=== PATIENT | female | born 1985 | race Caucasian/White ===

== ENCOUNTER 2019-10-05 21:08 | Emergency (ER) | payer OTHER ==
[2019-10-05] MEDS ORDERED: FENTANYL CITR 100 MCG/2 ML ONE ×2 (21:45→23:19)
[2019-10-05] MEDS ORDERED: NA CHLORIDE 0.9% 1,000 ML ONE (21:45)
[2019-10-05] MEDS ORDERED: ONDANSETRON 4 MG/2 ML VIAL ONE (22:08)
--- NOTE | 2019-10-05 23:59 | ER ---
Nurse's Notes [facility] Name: Emiliana Vasquez Age: 34 yrs Sex: Female : 1985 Arrival Date: 10/05/2019 Time: 21:12 Bed 30 Private MD: Diagnosis: Low back pain Presentation: 10/05 21:15 Presenting complaint: Patient states: "I have severe lower back pain, 2 hours ago I was aj1 getting up and I felt a distinct loud pop in my back and it just exploded with this burning pain down both of my legs, just my whole lower back and tailbone feel like they are on fire. I do have mobility issues in my left leg from cervical instability from a Chiari malformation. Transition of care: patient was not received from another setting of care. Onset of symptoms was October 05, 2019. Risk Assessment: Do you want to hurt yourself or someone else? Patient reports no desire to harm self or others. Initial Sepsis Screen: Does the patient meet any 2 criteria? HR > 90 bpm. No. Patient's initial sepsis screen is negative. Does the patient have a suspected source of infection? No. Patient's initial sepsis screen is negative. Care prior to arrival: None. 21:15 Method Of Arrival: Wheelchair aj1 21:15 Acuity: SIRENA 3 aj1 Triage Assessment: 21:20 General: Appears in no apparent distress. uncomfortable, Behavior is calm, cooperative, aj1 appropriate for age. Pain: Complains of pain in back Pain currently is 8 out of 10 on a pain scale. Neuro: Level of Consciousness is awake, alert, obeys commands. Cardiovascular: Patient's skin is warm and dry. Respiratory: Airway is patent Respiratory effort is even, unlabored, Respiratory pattern is regular, symmetrical. 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 - Social history:: Smoking status: Patient/guardian denies using tobacco. - Ebola Screening: : Patient denies travel to an Ebola-affected area in the 21 days before illness onset. Assessment: 21:51 General: Appears in no apparent distress. Behavior is calm, cooperative. Pain: rv Complains of pain in back. Neuro: Level of Consciousness is awake, alert, obeys commands, Oriented to person, place, time, situation. Musculoskeletal: Reports pain in back. 22:49 Reassessment: Patient appears in no apparent distress at this time. Patient and/or rv family updated on plan of care and expected duration. Pain level reassessed. Patient is alert, oriented x 3, equal unlabored respirations, skin warm/dry/pink. awaiting cT scan result. 22:58 Reassessment: Assumed care of pt. Pt sitting upright with neck brace in place, reports sr5 returning pain symptoms. PRovider notified. Equal unlabored resp, skin warm/dry/nc. Awaiting CT result. 23:56 Reassessment: Dr. Gao at bedside. sr5 Vital Signs: 21:20 BP 144 / 73; Pulse 127; Resp 20; Temp 99.5; Pulse Ox 100% on R/A; Weight 113.4 kg (R); aj1 Height 5 ft. 6 in. (167.64 cm); Pain 8/10; 22:00 BP 119 / 76; Pulse 99; Resp 17; Pulse Ox 98% ; rv 22:19 BP 125 / 78; Pulse 113; Resp 17; Pulse Ox 98% on R/A; rv 22:49 BP 125 / 78; Pulse 94; Resp 18; Pulse Ox 98% on R/A; rv 23:22 BP 119 / 67; Pulse 80; Resp 20; Pulse Ox 96% on R/A; sr5 23:22 Pain 8/10; sr5 23:47 BP 123 / 77; Pulse 77; Resp 16; Pulse Ox 99% on R/A; Pain 6/10; sr5 21:20 Body Mass Index 40.35 (113.40 kg, 167.64 cm) aj1 ED Course: 21:12 Patient arrived in ED. cl3 21:13 Cachorro Gao MD is Attending Physician. kdr 21:17 Triage completed. aj1 21:20 Arm band placed on Patient placed in an exam room. aj1 21:30 Geraldo Emerson RN is Primary Nurse. rv 21:45 Inserted saline lock: 22 gauge in left hand, using aseptic technique. rv 22:16 CT Lumbar Spine Wo Con In Process Unspecified. EDMS Administered Medications: 21:50 Drug: fentaNYL (PF) 50 mcg {Note: rass 0.} Route: IVP; Site: left hand; rv 22:08 Follow up: Response: No adverse reaction; Pain is decreased; RASS: Alert and Calm (0) rv 21:51 Drug: NS 0.9% 1000 ml Route: IV; Rate: 1 bolus; Site: left hand; rv 22:08 Drug: Zofran 4 mg Route: IVP; Site: left hand; rv 22:59 Follow up: Response: Nausea is decreased sr5 23:21 Drug: fentaNYL (PF) 50 mcg Route: IVP; Site: left hand; sr5 10/06 00:17 Drug: TORadol - Ketorolac 15 mg Route: IVP; Site: left hand; sr5 00:18 Drug: fentaNYL (PF) 75 mcg Route: IVP; Site: left hand; sr5 00:18 Drug: SOLU-Medrol 125 mg Route: IVP; Site: left hand; sr5 Outcome: 10/05 23:59 Discharge ordered by . kdr 10/06 00:39 Patient left the ED. sr5 Signatures: Dispatcher [employer] EDMS Jeannie Casiano RN RN aj1 Cachorro Gao MD MD kdr Resecker, Sam RN RN sr5 Geraldo Emerson RN RN rv Lewis, Charde cl3
--- NOTE | 2019-10-05 23:59 | EDPHYS ---
Physician Documentation [facility] Name: Emiliana Vasquez Age: 34 yrs Sex: Female : 1985 Arrival Date: 10/05/2019 Time: 21:12 Bed 30 Private MD: ED Physician Cachorro Gao HPI: 10/05 22:10 This 34 yrs old Female presents to ER via Wheelchair with complaints of Low kdr Back Pain. 22:10 The patient presents with pain that is acute, that is chronic, and an injury, and kdr tenderness, The patient was getting off the toilet earlier today and felt a "pop" followed by immediately worsening of her chronic low back pain and radiation to both lower extremities - slightly worse on the left. The symptoms are located in the low back. The pain radiates to the right leg and left leg. The problem was sustained Was getting off of toliet. Onset: The symptoms/episode began/occurred acutely, suddenly, just prior to arrival. Modifying factors: The patient symptoms are alleviated by nothing, the patient symptoms are aggravated by any movement, bending, walking. Associated signs and symptoms: Pertinent positives:. Severity of symptoms: At their worst the symptoms were moderate, severe, just prior to arrival, in the emergency department the symptoms are unchanged. The patient has experienced similar episodes in the past, chronically, but today's symptoms are worse, more painful. 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 aj1 Historical: - Allergies: 21:20 PENICILLINS; aj1 - Home Meds: 21:20 Adderall XR 30 mg oral cp24 once daily [Active]; [place] 10-325 mg Oral tab 1 tab as aj1 needed [Active]; Zyrtec 10 mg Oral tab 1 tab once daily [Active]; Zofran (as hydrochloride) 4 mg Oral tab 1 tabs as needed [Active]; Zanaflex Oral as needed [Active]; Phenergan Oral as needed [Active]; Naproxen Oral as needed [Active]; Fioricet Oral as needed [Active]; - PMHx: 21:20 ADD/ADHD; dee dee-danlos syndrome; idiopathic intracranail hypertension; intracranial aj1 shunt sep 19; Post Traumatic Stress Disorder; chiari malformation; craniocervical instability; - Immunization history:: Flu vaccine is up to date. - Social history:: Smoking status: Patient/guardian denies using tobacco. - Ebola Screening: : Patient denies travel to an Ebola-affected area in the 21 days before illness onset. ROS: 22:10 Constitutional: Negative for fever, chills, and weight loss, Eyes: Negative for injury, kdr pain, redness, and discharge, Neck: Negative for injury, pain, and swelling, Cardiovascular: Negative for chest pain, palpitations, and edema, Respiratory: Negative for shortness of breath, cough, wheezing, and pleuritic chest pain, Abdomen/GI: Negative for abdominal pain, nausea, vomiting, diarrhea, and constipation, : Negative for injury, bleeding, discharge, and swelling, Skin: Negative for injury, rash, and discoloration, Neuro: Negative for headache, weakness, numbness, tingling, and seizure activity. Psych: Negative for depression, anxiety, suicide ideation, homicidal ideation, and hallucinations, Allergy/Immunology: Negative for hives, rash, and allergies, Endocrine: Negative for neck swelling, polydipsia, polyuria, polyphagia, and marked weight changes, Hematologic/Lymphatic: Negative for swollen nodes, abnormal bleeding, and unusual bruising. 22:10 Back: Positive for decreased range of motion, pain at rest, pain with movement, radiated pain. Exam: 22:10 Constitutional: This is a well developed, well nourished patient who is awake, alert, kdr and in no acute distress. Head/Face: Normocephalic, atraumatic. Eyes: Pupils equal round and reactive to light, extra-ocular motions intact. Lids and lashes normal. Conjunctiva and sclera are non-icteric and not injected. Cornea within normal limits. Periorbital areas with no swelling, redness, or edema. Neck: Trachea midline, no thyromegaly or masses palpated, and no cervical lymphadenopathy. Supple, full range of motion without nuchal rigidity, or vertebral point tenderness. No Meningismus. Chest/axilla: Normal chest wall appearance and motion. Nontender with no deformity. No lesions are appreciated. Cardiovascular: Regular rate and rhythm with a normal S1 and S2. No gallops, murmurs, or rubs. Normal PMI, no JVD. No pulse deficits. Respiratory: Lungs have equal breath sounds bilaterally, clear to auscultation and percussion. No rales, rhonchi or wheezes noted. No increased work of breathing, no retractions or nasal flaring. Abdomen/GI: Soft, non-tender, with normal bowel sounds. No distension or tympany. No guarding or rebound. No evidence of tenderness throughout. Skin: Warm, dry with normal turgor. Normal color with no rashes, no lesions, and no evidence of cellulitis. MS/ Extremity: Pulses equal, no cyanosis. Neurovascular intact. Full, normal range of motion. Neuro: Awake and alert, GCS 15, oriented to person, place, time, and situation. Cranial nerves II-XII grossly intact. Motor strength 5/5 in all extremities. Sensory grossly intact. Cerebellar exam normal. Normal gait. Psych: Awake, alert, with orientation to person, place and time. Behavior, mood, and affect are within normal limits. 22:10 Back: pain, that is moderate, of the lumbar area, ROM is painful, with all movement, normal spinal alignment noted, CVA tenderness, is absent. Vital Signs: 21:20 BP 144 / 73; Pulse 127; Resp 20; Temp 99.5; Pulse Ox 100% on R/A; Weight 113.4 kg (R); aj1 Height 5 ft. 6 in. (167.64 cm); Pain 8/10; 22:00 BP 119 / 76; Pulse 99; Resp 17; Pulse Ox 98% ; rv 22:19 BP 125 / 78; Pulse 113; Resp 17; Pulse Ox 98% on R/A; rv 22:49 BP 125 / 78; Pulse 94; Resp 18; Pulse Ox 98% on R/A; rv 23:22 BP 119 / 67; Pulse 80; Resp 20; Pulse Ox 96% on R/A; sr5 23:22 Pain 8/10; sr5 23:47 BP 123 / 77; Pulse 77; Resp 16; Pulse Ox 99% on R/A; Pain 6/10; sr5 21:20 Body Mass Index 40.35 (113.40 kg, 167.64 cm) aj1 MDM: 22:10 Data reviewed: vital signs, nurses notes, old medical records, radiologic studies. kdr Counseling: I had a detailed discussion with the patient and/or guardian regarding: the historical points, exam findings, and any diagnostic results supporting the discharge/admit diagnosis, lab results, radiology results. 23:59 Patient medically screened. kdr 10/06 00:03 ED course: The patient was stable and improving with the interventions given. She was kdr happy with the care and plan for discharge and follow-up.. 10/05 21:36 Order name: CT Lumbar Spine Wo Con kdr Administered Medications: 10/05 21:50 Drug: fentaNYL (PF) 50 mcg {Note: rass 0.} Route: IVP; Site: left hand; rv 22:08 Follow up: Response: No adverse reaction; Pain is decreased; RASS: Alert and Calm (0) rv 21:51 Drug: NS 0.9% 1000 ml Route: IV; Rate: 1 bolus; Site: left hand; rv 22:08 Drug: Zofran 4 mg Route: IVP; Site: left hand; rv 22:59 Follow up: Response: Nausea is decreased sr5 23:21 Drug: fentaNYL (PF) 50 mcg Route: IVP; Site: left hand; sr5 10/06 00:17 Drug: TORadol - Ketorolac 15 mg Route: IVP; Site: left hand; sr5 00:18 Drug: fentaNYL (PF) 75 mcg Route: IVP; Site: left hand; sr5 00:18 Drug: SOLU-Medrol 125 mg Route: IVP; Site: left hand; sr5 Disposition: 10/05/19 23:59 Discharged to Home. Impression: Low back pain. - Condition is Stable. - Discharge Instructions: Musculoskeletal Pain, Back Pain, Adult, [id number]. - Prescriptions for Medrol ([place]) 4 mg Oral Tablets, Dose Pack - take 1 tablet by ORAL route as directed - follow package instructions; 1 packet. - Medication Reconciliation Form, Thank You Letter form. - Follow up: Private Physician; When: 2 - 3 days; Reason: If symptoms return, Further diagnostic work-up, Recheck today's complaints, Continuance of care, Re-evaluation by your physician. - Problem is an acute exacerbation. - Symptoms have improved. Signatures: Dispatcher [employer] EDJeannie Bess RN RN aj1 Cachorro Gao MD MD kdr Kerieckbobby, Ron RN RN sr5 Geraldo Emerson RN RN rv Corrections: (The following items were deleted from the chart) 00:39 10/05 23:59 10/05/2019 23:59 Discharged to Home. Impression: Low back pain. Condition sr5 is Stable. Forms are Medication Reconciliation Form, Thank You Letter, Antibiotic Education, Prescription Opioid Use. Follow up: Private Physician; When: 2 - 3 days; Reason: If symptoms return, Further diagnostic work-up, Recheck today's complaints, Continuance of care, Re-evaluation by your physician. Problem is an acute exacerbation. Symptoms have improved. kdr
[2019-10-06] MEDS ORDERED: FENTANYL CITR 100 MCG/2 ML ONE (00:09)
[2019-10-06] MEDS ORDERED: METHYLPREDNISOLONE 125 MG INJ ONE (00:10)
[2019-10-06] MEDS ORDERED: KETOROLAC 30 MG/ML INJ ONE (00:10)
[2019-10-06 00:51] VITALS: TEMP 99.5
[2019-10-06 00:57] VITALS: BP 123/77; O2SAT 99
--- NOTE | 2019-10-07 12:08 | RAD REPORT ---
EXAM DESCRIPTION: CT - Spine Lumbar Wo Con - 10/06/2019 8:02 am CLINICAL HISTORY: PAIN TECHNIQUE: Contiguous axial CT images obtained through the lumbar spine without IV contrast. Coronal and sagittal reformatted images also provided. This exam was performed according to our departmental dose-optimization program, which includes autom ated exposure control, adjustment of the mA and/or kV according to patient size and/or use of iterati ve reconstruction technique. COMPARISON: None available for comparison FINDINGS: Vertebra: There are 5 nonrib-bearing lumbar-type vertebral bodies. L4 and L5 limbus verteb ra. Minimal grade 1 retrolisthesis of L2 on L3. No acute or remote fracture deformity or subluxation. Disc spaces: Mild multilevel degenerative changes manifested by small broad-based disc bulges, mild a nterior osteophytic lipping and mild facet arthropathy. No canal stenosis. Mild bilateral foraminal n arrowing at L4-L5. Soft tissues: Unremarkable IMPRESSION: Mild multilevel degenerative changes. 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 The interpreting radiologist is f ully responsible for the content of the report.
== END 2019-10-06 00:39 | disposition home or self-care (01) ==
LOC: ER 21:08
DX: M54.5 Low back pain (principal); F90.9 Attention-deficit hyperactivity disorder, unspecified type; G93.2 Benign intracranial hypertension; Z88.0 Allergy status to penicillin
CPT/HCPCS: 72131; 96375; 96374; 99284; J3010 ×3; J7030; J2930; J2405